=== PATIENT | male | born 1995 | race Caucasian/White ===

== ENCOUNTER 2018-03-18 21:49 | Emergency (ER) | payer SELFPAY ==
[~2018-03-18] VITALS: Ht 182.9 cm; Wt 68.0 kg
[2018-03-18 21:55] VITALS: BP 148/98
== END 2018-03-18 22:30 | disposition left against medical advice (07) ==
LOC: ER 21:49
DX: F41.9 Anxiety disorder, unspecified (principal); Z53.21 Procedure and treatment not carried out due to patient leaving prior to being seen by health care provider